=== PATIENT | male | born 1980 | race Caucasian/White ===

== ENCOUNTER 2020-10-08 11:43 | Outpatient (REF) | payer OTHER, SELFPAY ==
[2020-10-08 13:50] LABS: Hematocrit 44.5 % (42-52); Mean Corpuscular HGB Conc 33.7 g/dl (31.0-36.0); Mean Corpuscular Hemoglobin 27.2 pg (27.0-33.0); Mean Corpuscular Volume 80.8 fL (80-98); Mean Platelet Volume 11.5 fL (9.4-12.4); Platelet Count 256 X10*3/uL (160-400); Red Blood Count 5.51 X10*6/uL (4.60-5.80); Red Cell Distribution Width 13.9 % (11.0-16.0); White Blood Count 7.4 X10*3/uL (4.8-10.8)
[2020-10-08 14:25] LABS: Alanine Aminotransferase 83 U/L (0-40); Albumin Level 4.9 g/dL (3.5-5.0); Alkaline Phosphatase 72 U/L (39-117); Anion Gap 14 (12-20); Aspartate Amino Transferase 78 U/L (5-37); Bilirubin Total 0.8 mg/dL (0.0-1.0); Blood Urea Nitrogen 11 mg/dL (9-16); Calcium 9.7 mg/dL (8.4-10.2); Carbon Dioxide 26 mmol/L (22-29); Chloride 101 mmol/L (96-108); Cholesterol 207 mg/dL; Estimated Glomerular Filt Rate > 60; Glucose Fasting 94 mg/dL (60-99); HDL Cholesterol 33 mg/dL; LDL Cholesterol Calculated 124 mg/dl; Potassium 4.1 mmol/L (3.3-5.1); Sodium 137 mmol/L (135-145); Total Protein 7.9 g/dL (6.5-8.0); Triglycerides 252 mg/dL
== END 2020-10-08 11:44 | disposition home or self-care (01) ==
LOC: HO.HMGCLDS 11:43
PROVIDERS: PCP Internal Medicine; Visit Provider Internal Medicine
DX: I10 Essential (primary) hypertension (principal)
CPT/HCPCS: 36415; 80053; 80061; 85027

== ENCOUNTER → 2021-01-20 13:57 | Outpatient (REF) | payer OTHER, SELFPAY | LOC: HO.SL 13:57 | PROVIDERS: PCP Internal Medicine; Visit Provider Internal Medicine | DX: G47.33 Obstructive sleep apnea (adult) (pediatric) (principal) | CPT/HCPCS: 95806 ==

== ENCOUNTER 2022-06-14 11:56 | Outpatient (REF) | payer OTHER, SELFPAY ==
[2022-06-14 14:01] LABS: MANUAL DIFF FLAG NO
[2022-06-14 14:25] LABS: Basophils Absolute Auto 0.1 X10*3/uL (0.0-0.2); Basophils Percent Auto 0.6 % (0-2); Eosinophils Absolute Auto 0.2 X10*3/uL (0.0-0.4); Eosinophils Percent Auto 2.3 % (0-4); Hematocrit 47.7 % (42.0-52.0); Hemoglobin 15.8 g/dl (14.0-18.0); Imm Gran Abs Auto 0.05 X10*3/uL (0.00-0.03); Imm Gran Pct Auto 0.6 % (0.0-0.4); Lymphocytes Absolute Auto 2.6 X10*3/uL (1.2-4.9); Lymphocytes Percent Auto 31.4 % (20-40); Mean Corpuscular HGB Conc 33.1 g/dl (31.0-36.0); Mean Corpuscular Hemoglobin 26.6 pg (27.0-33.0); Mean Corpuscular Volume 80.3 fL (80.0-98.0); Mean Platelet Volume 10.9 fL (9.4-12.4); Monocytes Absolute Auto 0.6 X10*3/uL (0.1-1.2); Monocytes Percent Auto 7.3 % (2-11); Neutrophils Absolute Auto 4.9 x10*3/uL (2.0-8.3); Neutrophils Percent Auto 57.8 % (45-73); Platelet Count 286 X10*3/uL (160-400); Red Blood Count 5.94 X10*6/uL (4.60-5.80); Red Cell Distribution Width 14.5 % (11.0-16.0); White Blood Count 8.4 X10*3/uL (4.8-10.8)
[2022-06-14 14:25] LABS: Appearance Urine Clear; Color Urine Yellow; Glucose Urine UA Negative (Negative); Leukocyte Esterase Urine Negative (Negative); Nitrite Urine Negative (Negative); PH 5.5 (5.0-9.0); Urine Blood Negative (Negative); Urine Ketones Negative (Negative); Urine Protein Negative (Neg-Trace)
[2022-06-14 14:32] LABS: Alanine Aminotransferase 62 U/L (0-40); Albumin Level 4.9 g/dL (3.5-5.0); Alkaline Phosphatase 75 U/L (39-117); Anion Gap 14 (12-20); Aspartate Amino Transferase 57 U/L (5-37); Blood Urea Nitrogen 13 mg/dL (9-16); Calcium 9.9 mg/dL (8.4-10.2); Carbon Dioxide 29 mmol/L (22-29); Chloride 101 mmol/L (96-108); Cholesterol 224 mg/dL; Estimated Glomerular Filt Rate > 60; Glucose Fasting 93 mg/dL (60-99); HDL Cholesterol 34 mg/dL; LDL Cholesterol Calculated 144 mg/dl; Potassium 4.5 mmol/L (3.3-5.1); Sodium 139 mmol/L (135-145); Total Protein 7.9 g/dL (6.5-8.0); Triglycerides 233 mg/dL
[2022-06-14 14:33] LABS: Bacteria Urine None Seen (None Seen); Hyaline Casts Urine 0-2 /LPF (0-2); RBC Urine 0-2 /HPF (0-2); Squamous Epithelial Cell Urine 0-2 /HPF (0-2); WBC Urine 0-5 /HPF (0-5)
== END 2022-06-14 11:57 | disposition home or self-care (01) ==
LOC: HO.HMGCLDS 11:56
PROVIDERS: PCP Internal Medicine; Visit Provider Internal Medicine
DX: Z00.00 Encounter for general adult medical examination without abnormal findings (principal); I10 Essential (primary) hypertension
CPT/HCPCS: 36415; 80053; 80061; 81001; 85025

== ENCOUNTER 2022-07-05 10:24 | Outpatient (REF) | payer OTHER, SELFPAY ==
--- NOTE | ~2022-07-05 | US_ITS ---
EXAMINATION: US ABDOMEN LIMITED CLINICAL INFORMATION: Other specified abnormal findings of blood chemistry. COMPARISON: None available. TECHNIQUE: Real-time imaging of the right upper quadrant abdominal viscera. FINDINGS: PANCREAS: The pancreas appears unremarkable, without masses or ductal dilatation, with the exception of the tail which is obscured by bowel gas. LIVER: The liver is enlarged measuring at least 21.7 cm in cephalocaudad dimension with increased echogenicity consistent with hepatic steatosis. There is focal fatty sparing seen adjacent to the gallbladder. The liver contour is normal. No focal hepatic lesion. There is no intrahepatic biliary duct dilatation seen. GALLBLADDER: Normal. The gallbladder is physiologically distended without evidence of stones, sludge, polyps, wall thickening or pericholecystic fluid. COMMON BILE DUCT: Normal in caliber measuring 0.5 cm in diameter. RIGHT KIDNEY: Normal. No hydronephrosis. No renal calculi or focal parenchymal lesions. The kidney measures 13.6 cm in maximum dimension. FREE FLUID: None. US/US abdomen limited IMPRESSION: Enlarged fatty liver.
== END 2022-07-05 10:25 | disposition home or self-care (01) ==
LOC: HO.HMGCX 10:24
PROVIDERS: PCP Internal Medicine; Visit Provider Internal Medicine
DX: R79.89 Other specified abnormal findings of blood chemistry (principal)
CPT/HCPCS: 76705

== ENCOUNTER 2023-10-26 11:57 | Outpatient (REF) | payer OTHER, SELFPAY ==
[2023-10-26 14:20] LABS: Alanine Aminotransferase 38 U/L (0-40); Albumin Level 4.7 g/dL (3.5-5.0); Alkaline Phosphatase 55 U/L (39-117); Anion Gap 11 (12-20); Aspartate Amino Transferase 39 U/L (5-37); Bilirubin Total 0.9 mg/dL (0.0-1.0); Blood Urea Nitrogen 13 mg/dL (9-16); Calcium 9.8 mg/dL (8.4-10.2); Carbon Dioxide 27 mmol/L (22-29); Chloride 104 mmol/L (96-108); Cholesterol 196 mg/dL (<200); Estimated Glomerular Filt Rate > 60; Glucose Fasting 98 mg/dL (60-99); HDL Cholesterol 32 mg/dL (>40); LDL Cholesterol Calculated 125 mg/dL (<100); Potassium 4.1 mmol/L (3.3-5.1); Sodium 138 mmol/L (135-145); Total Protein 7.7 g/dL (6.5-8.0); Triglycerides 198 mg/dL (<150)
== END 2023-10-26 11:58 | disposition home or self-care (01) ==
LOC: HO.HMGCLDS 11:57
PROVIDERS: PCP Internal Medicine; Visit Provider Internal Medicine
DX: K76.0 Fatty (change of) liver, not elsewhere classified (principal); E66.3 Overweight; I10 Essential (primary) hypertension; E78.5 Hyperlipidemia, unspecified
CPT/HCPCS: 36415; 80053; 80061

== ENCOUNTER 2023-11-05 13:47 | Outpatient (AMB) | payer OTHER, SELFPAY ==
[2023-11-05 13:48] VITALS: BP 120/72; PULSE 79; O2SAT 96; BMI 37.0
--- NOTE | 2023-11-05 13:48 | MHC.PC.OV ---
Vital Signs 11/05/23 13:48 Height 5 ft 11 in Weight 265 lb BMI 37.0 BP 120/72 Blood Pressure Location Lt brachial Position Sitting Pulse 79 Pulse Source Pulse Oximeter Pulse Oximetry (%) 96 Oxygen Delivery Method Room Air Intake Visit Reasons: PE reschedule Intake Note: Pt is here today for PE. Allergies aspirin Allergy (Unknown, Verified 11/05/23 13:49) pt doesn't remember Medication List - Last Reconciled 11/05/23 by Muriel Hernandez MD ciclopirox 8% 1 appl topical BEDTIME 4 weeks CPAP (CPAP Machine/Device) auto cpap pressure 6-20 cm lisinopril-hydrochlorothiazide 20-25 mg 1 tab PO DAILY Tobacco use date assessed: 11/05/23 Dental Screening Dental Screen Date: 11/05/23 Did you have a dental visit in the last 12 months?: Yes Did you have a dental problem in the last 6 months where you did not have access to dental care?: No Was dental information given to patient?: Patient has dentist HPI PE reschedule HPI Details Pt presents for PE. HTN is stable on meds. PFSH Medical History (Updated 11/05/23 @ 15:17 by Muriel Hernandez MD) Elevated LFTs Annual physical exam Sleep apnea HTN (hypertension) Surgical History No pertinent past surgical history Family History Father No problems noted. Mother Hypertension Social History Housing: House Patient Tobacco Use Status: Never used Tobacco e-Cigarette/Vaping Use: Never Used Second Hand Smoke Exposure: No service: No Current occupational status: employed Cognitive needs: No Hearing needs: No Vision needs: No Questionnaire PHQ-9 Over the last 2 weeks, how often have you been bothered by any of the following problems? 1. Little interest or pleasure in doing things: not at all 2. Feeling down, depressed, or hopeless: not at all 3. Trouble falling or staying asleep, or sleeping too much: several days 4. Feeling tired or having little energy: not at all 5. Poor appetite or overeating: not at all 6. Feeling bad about yourself - or that you are a failure or have let yourself or your family down: not at all 7. Trouble concentrating on things, such as reading the newspaper or watching television: not at all 8. Moving or speaking so slowly that other people could have noticed. Or the opposite - being so fidgety or restless that you have been moving around a lot more than usual: not at all 9. Thoughts that you would be better off or of hurting yourself in some way: not at all Total score: 1 Depression Screening Interpretation: Negative Depression Screening Done: Yes 60205 - PHQ-9 Billing: Yes Source: Developed by Drs. Tobi Singer, Kamilla Deutsch, Stoney Garcia and colleagues, with an educational judy from [employer]. Thrive Questionnaire Date Thrive assessed: 11/05/23 I am a: Patient What is your living situation today?: I have a steady place to live Within the past 12 months, did the food you bought not last and you didn't have the money to get more?: Never true Within the past 12 months, did you worry whether your food would run out before you got money to buy more?: Never true Do you have trouble paying for medicines?: No Do you have trouble getting transportation to medical appointments?: No Do you have trouble paying your heating and electricity bill?: No Do you have trouble taking care of your child, family member or friend?: No Do you have trouble with day-to-day activities such as bathing, preparing meals, shopping, managing finances, etc.?: No Are you currently unemployed and looking for a job?: No Are you interested in more education?: No Please select the resources that you would like help with: None THRIVE Score: 0 AUDIT C Alcohol Use Questionnaire (AUDIT-C) 1. How often do you have a drink containing alcohol?: 2-4 times a month 2. How many drinks containing alcohol do you have on a typical day when you are drinking?: 1 or 2 3. How often do you have six or more drinks on one occasion?: Never Total Score: 2 RENEE-7 AMB Questionnaire RENEE-7 Date RENEE - 7 assessed: 11/05/23 Feeling nervous, anxious, or on edge: 0 = Not at all Not being able to stop or control worryin = Not at all Worrying too much about different things: 0 = Not at all Trouble relaxin = Not at all Being so restless that it is hard to sit still: 0 = Not at all Becoming easily annoyed or irritable: 0 = Not at all Feeling afraid as if something awful might happen: 0 = Not at all Total RENEE-7 score (0-4 normal; 5-9 mild; 10-14 moderate; 15-21 severe): 0 Source: Developed by Drs. Tobi Singer, Kamilla Deutsch, Stoney Garcia and colleagues, with an educational judy from [employer]. RENEE-7 Assessment Billing RENEE-7 Assessment Tool: RENEE-7 Assessment 40853 Review of Systems Const All systems reviewed & are unremarkable except as noted in HPI and below Eyes Reports no additional complaints ENT Reports no additional complaints Card Reports no additional complaints Resp Reports no additional complaints GI Reports no additional complaints Reports no additional complaints Physical exam (Primary Care) Vital Signs: Last Vital Signs Pulse 79 11/05/23 13:48 BP 120/72 11/05/23 13:48 Pulse Ox 96 11/05/23 13:48 Oxygen Delivery Method Room Air 11/05/23 13:48 BMI result Body Mass Index 37.0 Tobacco/Smoking Status: Tobacco use Status Tobacco use date assessed 11/05/23 11/05/23 13:54 Patient Tobacco Use Status Never used Tobacco 11/05/23 13:54 e-Cigarette/Vaping Use Never Used 11/05/23 13:54 PHQ-9: PHQ-9 Score PHQ-9: Total score 1 11/05/23 13:54 Depression Screening Interpretation: Negative Thrive Assessment: Date of Thrive Assessment Date Thrive assessed 11/05/23 11/05/23 13:54 Const General: no acute distress HENMT Head: Yes normal to inspection Ears: hearing grossly normal bilaterally Face and sinus: Yes normal facial exam Mouth: Normal oral and palatal mucosa present Throat: Yes posterior oropharynx normal Eyes General: appearance normal, both eyes and all related structures Neck Neck: Yes no lymphadenopathy and Yes supple Resp Effort & Inspection: normal respiratory effort Auscultation: clear to auscultation bilaterally Cardio Rhythm: regular rhythm Heart sounds: S1 normal heart sound present and S2 normal heart sound present GI Inspection: Yes normal to inspection Palpation (GI): Soft to palpation Percussion: Yes normal to percussion Auscultation: normal bowel sounds Assessment and Plan Assessment & Plan (1) Dysplastic nevi: Comment: On chest and back Code(s): D23.9 - Other benign neoplasm of skin, unspecified Plan: Referred to dermatology (2) Hyperlipidemia: Code(s): E78.5 - Hyperlipidemia, unspecified Plan: Continue low-cholesterol diet (3) HTN (hypertension): Code(s): I10 - Essential (primary) hypertension Plan: Continue current medications (4) Annual physical exam: Code(s): Z00.00 - Encounter for general adult medical examination without abnormal findings Plan: Well-balanced diet regular exercise weight loss discussed with the patient, return in 1 year with fasting labs before Orders: Orders Comprehensive [place]. Panel Fast 1 Year E78.5 - Hyperlipidemia, unspecified, I10 - Essential (primary) hypertension, Z00.00 - Encounter for general adult medical examination without abnormal findings Lipid Panel 1 Year E78.5 - Hyperlipidemia, unspecified, I10 - Essential (primary) hypertension, Z00.00 - Encounter for general adult medical examination without abnormal findings Complete Blood Count Auto Diff 1 Year E78.5 - Hyperlipidemia, unspecified, I10 - Essential (primary) hypertension, Z00.00 - Encounter for general adult medical examination without abnormal findings UA w Microscopic 1 Year E78.5 - Hyperlipidemia, unspecified, I10 - Essential (primary) hypertension, Z00.00 - Encounter for general adult medical examination without abnormal findings Referrals Dermatology Referral D23.9 - Other benign neoplasm of skin, unspecified Medications: Refilled ciclopirox 8% 1 appl topical BEDTIME 4 weeks 6.6 mL 3RF lisinopril-hydrochlorothiazide 20-25 mg 1 tab PO DAILY 90 tabs 3RF Coding Level of Care Code Est Pt Prev Care 40-64y(26262) Diagnoses Dysplastic nevi D23.9 Hyperlipidemia E78.5 HTN (hypertension) I10 Annual physical exam Z00.00 Additional Codes RENEE-7 Assessment Billing - RENEE-7 Assessment Tool: RENEE-7 Assessment 51527 ([id number])
== END 2023-11-05 14:12 | disposition home or self-care (01) ==
LOC: HO.HMCC 13:47
PROVIDERS: PCP Internal Medicine; Visit Provider Internal Medicine
DX: D23.9 Other benign neoplasm of skin, unspecified (principal); E78.5 Hyperlipidemia, unspecified; I10 Essential (primary) hypertension; Z00.00 Encounter for general adult medical examination without abnormal findings

== ENCOUNTER → 2023-11-05 13:47 | Outpatient (BNVA) | payer OTHER, SELFPAY | PROVIDERS: PCP Internal Medicine; Visit Provider Internal Medicine | DX: Z00.00 Encounter for general adult medical examination without abnormal findings (principal); D23.9 Other benign neoplasm of skin, unspecified; E78.5 Hyperlipidemia, unspecified; I10 Essential (primary) hypertension | CPT/HCPCS: 96127; 99396 ==

== ENCOUNTER 2024-11-07 08:35 | Outpatient (AMB) | payer OTHER, SELFPAY ==
[2024-11-07 08:40] VITALS: BP 122/70; PULSE 73; RESP 18; TEMP 37.1; O2SAT 96; BMI 37.8
--- NOTE | 2024-11-07 08:40 | A.OFFPC_ITS ---
Vital Signs 11/07/24 08:40 Height 5 ft 11 in Weight 271 lb BMI 37.8 BP 122/70 Blood Pressure Location Lt brachial Position Sitting Respiration 18 Pulse 73 Pulse Source Pulse Oximeter Temp 98.7 F Temp Source Oral Pulse Oximetry (%) 96 Oxygen Delivery Method Room Air Intake Visit Reasons: PE Intake Note: Pt is here today for PE. Allergies aspirin Allergy (Unknown, Verified 11/05/23 13:49) pt doesn't remember Medication List - Last Reconciled 11/07/24 by Muriel Hernandez MD ciclopirox 8% 1 appl topical BEDTIME 4 weeks CPAP (CPAP Machine/Device) auto cpap pressure 6-20 cm lisinopril-hydrochlorothiazide 20-25 mg 1 tab PO DAILY Tobacco use date assessed: 11/07/24 Dental Screening Dental Screen Date: 11/05/23 HPI PE HPI Details Pt presents for PE. [facility] Medical History (Updated 11/07/24 @ 09:18 by Muriel Hernandez MD) Fatty liver Overweight Hyperlipidemia Elevated LFTs Annual physical exam Sleep apnea HTN (hypertension) Surgical History No pertinent past surgical history Family History Father No problems noted. Mother Hypertension Social History Housing: House Patient Tobacco Use Status: Never used Tobacco e-Cigarette/Vaping Use: Never Used Second Hand Smoke Exposure: No service: No Current occupational status: employed Cognitive needs: No Hearing needs: No Vision needs: No Questionnaire PHQ-9 Over the last 2 weeks, how often have you been bothered by any of the following problems? 1. Little interest or pleasure in doing things: nearly every day 2. Feeling down, depressed, or hopeless: not at all 3. Trouble falling or staying asleep, or sleeping too much: not at all 4. Feeling tired or having little energy: not at all 5. Poor appetite or overeating: not at all 6. Feeling bad about yourself - or that you are a failure or have let yourself or your family down: not at all 7. Trouble concentrating on things, such as reading the newspaper or watching television: not at all 8. Moving or speaking so slowly that other people could have noticed. Or the opposite - being so fidgety or restless that you have been moving around a lot more than usual: not at all 9. Thoughts that you would be better off or of hurting yourself in some way: not at all Total score: 3 Depression Screening Interpretation: Negative Depression Screening Done: Yes Source: Developed by Drs. Tobi Singer, Kamilla Deutsch, Stoney Garcia and colleagues, with an educational judy from [employer]. Thrive Questionnaire Date Thrive assessed: 11/05/23 I am a: Patient What is your living situation today?: I have a steady place to live Within the past 12 months, did the food you bought not last and you didn't have the money to get more?: Never true Within the past 12 months, did you worry whether your food would run out before you got money to buy more?: Never true Do you have trouble paying for medicines?: No Do you have trouble getting transportation to medical appointments?: No Do you have trouble paying your heating and electricity bill?: No Do you have trouble taking care of your child, family member or friend?: No Do you have trouble with day-to-day activities such as bathing, preparing meals, shopping, managing finances, etc.?: No Are you currently unemployed and looking for a job?: No Are you interested in more education?: No Please select the resources that you would like help with: None Currently or been in a relationship where the following occur: No concerns reported THRIVE Score: 0 AUDIT C Alcohol Use Questionnaire (AUDIT-C) 1. How often do you have a drink containing alcohol?: 2-4 times a month 2. How many drinks containing alcohol do you have on a typical day when you are drinking?: 3 or 4 3. How often do you have six or more drinks on one occasion?: Less than monthly Total Score: 4 RENEE-7 AMB Questionnaire RENEE-7 Date RENEE - 7 assessed: 11/05/23 Feeling nervous, anxious, or on edge: 0 = Not at all Not being able to stop or control worryin = Not at all Worrying too much about different things: 0 = Not at all Trouble relaxin = Not at all Being so restless that it is hard to sit still: 0 = Not at all Becoming easily annoyed or irritable: 0 = Not at all Feeling afraid as if something awful might happen: 0 = Not at all Total RENEE-7 score (0-4 normal; 5-9 mild; 10-14 moderate; 15-21 severe): 0 Source: Developed by Drs. Tobi Singer, Kamilla Deutsch, Stoney Garcia and colleagues, with an educational judy from [employer]. Review of Systems Const All systems reviewed & are unremarkable except as noted in HPI and below Eyes Reports no additional complaints ENT Reports no additional complaints Card Reports no additional complaints Resp Reports no additional complaints GI Reports no additional complaints Reports no additional complaints Neuro Reports no additional complaints Physical exam (Primary Care) Vital Signs: Last Vital Signs Temp 98.7 F 11/07/24 08:40 Pulse 73 11/07/24 08:40 Resp 18 11/07/24 08:40 BP 122/70 11/07/24 08:40 Pulse Ox 96 11/07/24 08:40 Oxygen Delivery Method Room Air 11/07/24 08:40 BMI result Body Mass Index 37.8 Tobacco/Smoking Status: Tobacco use Status Tobacco use date assessed 11/07/24 11/07/24 08:45 Patient Tobacco Use Status Never used Tobacco 11/07/24 08:40 e-Cigarette/Vaping Use Never Used 11/07/24 08:40 PHQ-9: PHQ-9 Score PHQ-9: Total score 3 11/07/24 08:40 Depression Screening Interpretation: Negative Thrive Assessment: Date of Thrive Assessment Date Thrive assessed 11/05/23 11/07/24 08:40 Currently or been in a relationship where the following occur: No concerns reported Const General: no acute distress HENMT Head: Yes normal to inspection Ears: TM's normal bilaterally Face and sinus: Yes normal facial exam Mouth: Normal oral and palatal mucosa present Eyes General: appearance normal, both eyes and all related structures Neck Neck: Yes no lymphadenopathy and Yes supple Resp Effort & Inspection: normal respiratory effort Auscultation: clear to auscultation bilaterally Cardio Rhythm: regular rhythm Heart sounds: S1 normal heart sound present and S2 normal heart sound present GI Inspection: Yes normal to inspection Palpation (GI): Soft to palpation Percussion: Yes normal to percussion Auscultation: normal bowel sounds Coding Level of Care Code Est Pt Prev Care 40-64y(17235) Diagnoses Dysplastic nevi D23.9 HTN (hypertension) I10 Overweight E66.3 Annual physical exam Z00.00 Sleep apnea G47.30 Assessment & Plan Assessment & Plan (1) Dysplastic nevi: Comment: On chest and back Code(s): D23.9 - Other benign neoplasm of skin, unspecified Category: Medical Plan: refer to [place] (2) HTN (hypertension): Code(s): I10 - Essential (primary) hypertension Category: Medical Plan: Continue current medications (3) Overweight: Code(s): E66.3 - Overweight Category: Medical Plan: Decrease caloric intake increasing physical activity discussed with the patient (4) Annual physical exam: Code(s): Z00.00 - Encounter for general adult medical examination without abnormal findings Category: Medical Plan: Well-balanced diet regular physical activity discussed with the patient Cologuard will be checked for colon cancer screening (5) Sleep apnea: Comment: On CPAP Code(s): G47.30 - Sleep apnea, unspecified Category: Medical Plan: Compliance with CPAP discussed with the patient Orders: Referrals Cologuard Test Z12.11 - Encounter for screening for malignant neoplasm of colon, Z12.12 - Encounter for screening for malignant neoplasm of rectum Dermatology Referral D23.9 - Other benign neoplasm of skin, unspecified Medications: Refilled lisinopril-hydrochlorothiazide 20-25 mg 1 tab PO DAILY 90 tabs 3RF
--- OUTSIDE RECORDS SUMMARY | 2024-11-07 09:00 | XMS_ITS | Encounter Summary ---
Author Organization [facility] Address [address] [place] [address] Care Team Providers Care Compotype Operator Name Role Phone Dirk Soto MD Primary Care Provider Encounter Details Date Type Department Care Team (Late st Contact Info) Description 09/02/2012 Interim Notes [facility] [address] [place] [id number] [address] Rincon [address] [place] [address] Social History Tobacco Use Types Packs/Day Years Used Date Smoking Tobacco: Never Assessed Sex and Gender Information Value Date Recorded Sex Assigned at Not on file Legal Sex Male 11:36 AM PDT Gender Identity Not on file Sexual Orientation Not on file documented as of this encounter Plan of Treatment Not on file documented as of this encounter Visit Diagnoses Diagnosis Elevated lipids- Primary Other and unspecified hyperlipidemia HTN (hypertension) Unspecified essential hypertension documented in this encounter Care Teams Compotype Operator Relationship Specialty Start Date End Date Dirk Soto MD [address] [place] [address] PCP - General Internal Medicine 08/14/13 documented as of this encounter
--- OUTSIDE RECORDS SUMMARY | 2024-11-07 09:00 | XMS_ITS | Clinical Summary ---
Author Organization [facility] Address [address] [place] [address] Care Team Providers Care Model Maker Name Role Phone Dirk Soto MD Primary Care Provider [phone] Source Comments PLEASE NOTE, if this patient is a minor, it may be UNLAWFUL to discuss sensitive information that is contained in these records (such as FAMILY PLANNING, MENTAL HEALTH or SUBSTANCE ABUSE) with the minor patient's parent or other person without the patient's specific authorization.[facility] Allergies Active Allergy Reactions Criticality Noted Date Comments Aspirin 03/04/2013 Medications lisinopril (PRINIVIL,ZESTRI L) 20 mg tabletIndication s:HTN (hypertension) Take 1 Tab by mouth once daily. 30 Tab 2 04/17/2013 Active Active Problems Problem Noted Date Diagnosed Date HTN (hypertension) 04/17/2013 Obesity (BMI 30.0-34.9) 04/17/2013 Hypercholesterolemia 04/17/2013 Family History Medical History Relation Name Comments Hypertension Brother Hypertension Father Hypertension Mother Relation Name Status Comments Brother Alive Father Alive Mother Alive Sister Alive Social History Tobacco Use Types Packs/Day Years Used Date Smoking Tobacco: Never Alcohol Use Standard Drinks/Week Comments Yes 0 (1 standard drink = 0.6 oz pur e alcohol) occasionally Sex and Gender Information Value Date Recorded Sex Assigned at Not on file Legal Sex Male 11:36 AM PDT Gender Identity Not on file Sexual Orientation Not on file Last Filed Vital Signs Vital Sign Reading Time Taken Comments Blood Pressure 134/88 04/17/2013 11:58 AM EST Pulse 64 04/17/2013 11:58 AM EST Temperature 36.6 C (97.9 F) 04/17/2013 11:58 AM EST Respiratory Rate 12 04/17/2013 11:58 AM EST Oxygen Saturation - - Inhaled Oxygen Concentration - - Weight 105.2 kg (232 lb) 04/17/2013 11:58 AM EST Height 179.7 cm (5' 10.75 ) 04/17/2013 11:58 AM EST Body Mass Index 32.59 04/17/2013 11:58 AM EST Plan of Treatment Not on file Insurance [facility] Member Subscriber Plan / Payer (Ef fective 2013-Present) Name:Frank Villanueva Relation to Subscriber:Self Name:Frank Villanueva Payer ID:[id number] Group ID:Not on file Type:Medicaid Address: [facility] [address] [place] [address] Care Teams Model Maker Relationship Specialty Start Date End Date Dirk Soto MD [address] [place] [phone] PCP - General Internal Medicine 08/14/13
== END 2024-11-07 09:20 | disposition home or self-care (01) ==
LOC: HO.HMCC 08:36
PROVIDERS: PCP Internal Medicine; Visit Provider Internal Medicine
DX: D23.9 Other benign neoplasm of skin, unspecified (principal); I10 Essential (primary) hypertension; E66.3 Overweight; Z00.00 Encounter for general adult medical examination without abnormal findings; G47.30 Sleep apnea, unspecified

== ENCOUNTER → 2024-11-07 08:35 | Outpatient (BNVA) | payer OTHER, SELFPAY | PROVIDERS: PCP Internal Medicine; Visit Provider Internal Medicine | DX: Z00.00 Encounter for general adult medical examination without abnormal findings (principal); D23.9 Other benign neoplasm of skin, unspecified; I10 Essential (primary) hypertension; G47.30 Sleep apnea, unspecified; E66.3 Overweight; Z68.37 Body mass index [BMI] 37.0-37.9, adult | CPT/HCPCS: 99396 ==